=== PATIENT | male | born 1985 | race Caucasian/White ===

== ENCOUNTER 2020-12-11 11:18 | Outpatient (CLI) | payer OTHER, SELFPAY ==
--- NOTE | 2020-12-11 11:25 | MR_ITS ---
WS: [id number] MRI BRAIN WITH AND WITHOUT CONTRAST HISTORY: CHRONIC MIGRAINES COMPARISON: None available. TECHNIQUE: Multiplanar imaging performed through the brain with MultiHance 20 ml's IV. No acute infarcts are seen. Garcia-white matter differentiation is well preserved. No susceptibility artifacts or prior lacunar infarcts. Ventricles and extra-axial spaces are normal. Clivus and pituitary gland are normal. Visualized posterior fossa and brainstem are also normal. Postcontrast images are negative for masses or vascular malformations. Dural venous sinuses are normal. Paranasal sinuses: Well aerated with no significant disease. Mastoid air cells: Normal. Calvarium and scalp: Normal. MR/MR head wo/w con [id number] IMPRESSION: 1. Normal MRI brain with contrast. 2. No hemorrhage, infarct or mass.
== END 2020-12-11 11:19 | disposition home or self-care (01) ==
PROVIDERS: PCP Emergency Medicine Emergency Medical Services; Visit Provider Emergency Medicine Emergency Medical Services
DX: G43.909 Migraine, unspecified, not intractable, without status migrainosus (principal)
CPT/HCPCS: 70553; A9577

== ENCOUNTER 2024-01-24 06:00 | Outpatient (RCR) | payer OTHER, SELFPAY | END 2024-02-03 18:00 | disposition home or self-care (01) | LOC: GPT 06:00 | PROVIDERS: Visit Provider General Practice | DX: G89.4 Chronic pain syndrome (principal) | CPT/HCPCS: 97110; 97112; 97140; 97161 ==

== ENCOUNTER 2024-02-04 06:00 | Outpatient (RCR) | payer OTHER, SELFPAY | END 2024-03-04 23:59 | disposition home or self-care (01) | LOC: GPT 06:00 | PROVIDERS: Visit Provider General Practice | DX: G89.4 Chronic pain syndrome (principal) | CPT/HCPCS: 20561; 97110; 97112; 97140 ==

== ENCOUNTER 2024-03-05 06:00 | Outpatient (RCR) | payer OTHER, SELFPAY | END 2024-04-04 23:59 | disposition home or self-care (01) | LOC: GPT 06:00 | PROVIDERS: Visit Provider General Practice | DX: G89.4 Chronic pain syndrome (principal) | CPT/HCPCS: 20561; 97110; 97112; 97164 ==

== ENCOUNTER 2024-05-16 06:00 | Outpatient (RCR) | payer OTHER, SELFPAY | END 2024-06-04 23:59 | disposition home or self-care (01) | LOC: GPT 06:00 | PROVIDERS: Visit Provider Nurse Practitioner | DX: G89.4 Chronic pain syndrome (principal) | CPT/HCPCS: 97110; 97140; 97164 ==

== ENCOUNTER 2024-06-05 06:00 | Outpatient (RCR) | payer OTHER, SELFPAY | END 2024-07-05 23:59 | disposition home or self-care (01) | LOC: GPT 06:00 | PROVIDERS: Visit Provider Nurse Practitioner | DX: G89.4 Chronic pain syndrome (principal) | CPT/HCPCS: 97110 ==